=== PATIENT | male | born 1965 | race Caucasian/White ===

== ENCOUNTER 2017-08-23 17:05 | Emergency (ER) | payer MEDICARE ==
[~2017-08-23 17:05] MED LIST: ISOVUE-370 76%-LOCM 1 ML ONE
[2017-08-23 18:23] LABS: #Eosinphils 0.2 thou/uL (0.0-0.7); #Lymphocytes 1.8 thou/uL (1.20-3.40); #Monocytes 0.5 thou/uL (0.11-0.59); #Neutrophils 3.3 thou/uL (1.40-6.50); %Basophils 0.8 % (0.0-1.0); %Eosinophils 3.4 % (0.0-10.0); %Lymphocytes 30.8 % (21.0-51.0); %Monocytes 8.3 % (0.0-10.0); %Neutrophils 56.8 % (42.0-75.0); Hemoglobin 13.8 g/dL (14.0-18.0); Mean Corpuscular HGB CONC 34.3 g/dL (32.0-36.0); Mean Corpuscular Hemoglobin 32.9 pg (27.0-31.0); Mean Platelet Volume 7.6 fL (7.4-10.4); Platelet Count 271 thou/uL (130-400); RBC Distribution Width 11.5 % (11.5-14.5); Red Blood Cell (RBC) Count 4.19 mill/uL (4.70-6.10); White Blood Cell (WBC) Count 5.9 thou/uL (4.8-10.8)
[2017-08-23 18:43] LABS: ALT (SGPT) 11 U/L (8-55); AST (SGOT) 12 U/L (5-34); Albumin 4.6 g/dL (3.5-5.0); Alkaline Phosphatase 70 U/L (40-150); Anion Gap 12 mmol/L (10-20); BUN (Urea Nitrogen) 11 mg/dL (8.4-25.7); Bilirubin, Total 0.3 mg/dL (0.2-1.2); Calc. Creatinine Clearance 0 mL/min (70-130); Calcium 9.6 mg/dL (7.8-10.44); Carbon Dioxide 28 mmol/L (22-29); Chloride 107 mmol/L (98-107); Estimated GFR-MDRD 74; Globulin 2.6 g/dL (2.4-3.5); Glucose 95 mg/dL (70-105); Potassium 4.1 mmol/L (3.5-5.1); Protein, Total 7.2 g/dL (6.0-8.3); Sodium 143 mmol/L (136-145)
--- NOTE | 2017-08-23 20:17 | CT ---
CT BRAIN WITHOUT CONTRAST: INDICATIONS: Posterior occipital scalp mass with weight loss, dysphagia, and fatigue. FINDINGS: No acute infarct, hemorrhage, or hydrocephalus is present. The septum pellucidum and third ventricle are midline. There is a mildly prominent left occipital nodular lesion seen within the posterior sca lp, measuring 1.2 cm. This was seen on a comparison examination dated 06/26/2013. Other additional mild shotty appearing lymph nodes within the left posterior occipital scalp are stable to the prior. The skull and extracranial soft tissues are unremarkable. IMPRESSION: 1. No acute intracranial abnormality. 2. Nodularity involving the left posterior occipital scalp is largely similar to a comparison dated 06/26/2013. POS: [facility]
--- NOTE | 2017-08-23 20:26 | CT ---
CT SOFT TISSUES NECK WITH IV CONTRAST: INDICATIONS: Six weeks ago the patient had a palpable lump in the occipital region on the left that spread to the left side of the neck with a 50 pound weight loss over the last year. The patient now has a rash on the head and dysphagia with fatigue. COMPARISON: CT brain dated 07/06/2013. FINDINGS: Slight nodularity involving the left aspect of the occipital scalp and left posterior neck is stable to the comparison dated 2012. Mucus retention cysts are seen within the left maxillary sinus. There is moderate mucosal thickening within the right maxillary sinus. The mastoid air cells are clear. The aerodigestive tract is within normal limits. The parotid, submandibular, and thyroid glands appe ar within normal limits. No pathologically enlarged lymph nodes are evident. There are a few shotty appearing lymph nodes seen scattered within the neck bilaterally. There is scattered degenerative and osteoarthritic change. The lung apices are clear. IMPRESSION: 1. The slight nodularity seen within the left posterior aspect of the scalp is stable to a compariso n study dated 2012. This may reflect small, mildly prominent lymph nodes within the left occipital s calp. Skin lesions cannot be entirely excluded. Recommend correlation. 2. No pathologically enlarged lymph nodes seen within the soft tissues of the neck. 3. Moderate paranasal sinus disease. POS: [facility]
--- NOTE | 2017-08-23 20:27 | RAD ---
PA AND LATERAL OF THE CHEST: INDICATIONS: Knock on the back of the head with neck pain. FINDINGS: The lungs are clear. The cardiomediastinal silhouette is normal. No acute osseous abnormality is ev ident. The exam is compared to a prior dated 03/29/2012. IMPRESSION: No acute cardiopulmonary abnormality. POS: [facility]
== END 2017-08-23 20:48 | disposition home or self-care (01) ==
LOC: ERS 17:05
DX: R59.0 Localized enlarged lymph nodes (principal); R21 Rash and other nonspecific skin eruption; I10 Essential (primary) hypertension; Z86.73 Personal history of transient ischemic attack (TIA), and cerebral infarction without residual deficits; F41.9 Anxiety disorder, unspecified
CPT/HCPCS: 36415; 70450; 70491; 71020; 80053; 83605; 85025